=== PATIENT | female | born 1975 | race Caucasian/White ===

== ENCOUNTER 2018-11-16 08:00 | Outpatient (CLI) | payer MEDICAID ==
[2018-11-16 12:21] LABS: BASOPHILS % (AUTO) 0.6 %; EOSINOPHILS # (AUTO) 0.1 10^3/uL (0.0-0.7); EOSINOPHILS % (AUTO) 1.9 %; HGB - HEMOGLOBIN 12.7 g/dL (12.0-16.0); LYMPHOCYTES # (AUTO) 2.5 10^3/uL (1.5-3.5); LYMPHOCYTES % (AUTO) 47.6 %; MEAN CORPUSCULAR HEMOGLOBIN 28.9 pg (27.0-31.0); MEAN CORPUSCULAR HGB CONC 31.1 g/dL (32.0-36.0); MEAN CORPUSCULAR VOLUME 92.7 fL (81.0-99.0); MEAN PLATELET VOLUME 11.9 fL (7.9-10.8); MONOCYTES # (AUTO) 0.4 10^3/uL (0.0-1.0); MONOCYTES % (AUTO) 6.9 %; NEUTROPHILS # (AUTO) 2.2 10^3/uL (1.5-6.6); NEUTROPHILS % (AUTO) 42.6 %; PLT - PLATELET COUNT 213 10^3/uL (130-450); WHITE BLOOD COUNT 5.3 x10^3/uL (4.8-10.8)
[2018-11-16 12:58] LABS: ALBUMIN 3.8 g/dL (3.2-5.5); ALBUMIN/GLOBULIN RATIO 1.2 (1.0-2.2); ALKALINE PHOSPHATASE 70 IU/L (42-121); ALT ALANINE AMINOTRANSFERASE 21 IU/L (10-60); AST ASPARTATE AMINOTRANSFERASE 24 IU/L (10-42); BILIRUBIN,TOTAL 0.4 mg/dL (0.2-1.0); BUN - BLOOD UREA NITROGEN 13 mg/dL (6-20); CARBON DIOXIDE - CO2 27 mmol/L (21-32); CHLORIDE 106 mmol/L (101-111); CHOL/HDL RATIO 2.5 (<4.4); CHOLESTEROL 206 mg/dL; CREATININE 0.8 mg/dL (0.4-1.0); GFR - MDRD 79 (>89); GLUCOSE 86 mg/dL (70-100); HDL CHOLESTEROL 82 mg/dL; LDL CHOLESTEROL,CALCULATED 95 mg/dL; LDL/HDL RATIO 1.2 (<4.4); SODIUM 140 mmol/L (135-145); VLDL CHOLESTEROL 29 mg/dL
[2018-11-16 13:25] LABS: HB2 TOTAL 13.4 g/dL; HEMOGLOBIN A1C 0.47 g/dL; HEMOGLOBIN A1C % 5.4 % (4.6-6.2)
== END 2018-11-16 23:59 | disposition home or self-care (01) ==
LOC: LAB.N 08:00
PROVIDERS: ATTEND Physician Assistant Medical
DX: E55.9 Vitamin D deficiency, unspecified (principal); E16.2 Hypoglycemia, unspecified; Z87.39 Personal history of other diseases of the musculoskeletal system and connective tissue; F31.9 Bipolar disorder, unspecified; F43.10 Post-traumatic stress disorder, unspecified
CPT/HCPCS: 36415; 80053; 80061; 82306; 83036; 83721; 84443; 85025

== ENCOUNTER 2018-12-24 14:58 | Outpatient (CLI) | payer MEDICAID ==
--- NOTE | 2019-01-01 11:32 | Mammography Report ---
Reason: SCREENING MAMMO Procedure Date: 12/24/2018 Accession Number: [id number] / [id number] Procedure: MGN - Screening Mammo Dig Bilat CPT Code: FULL RESULT: EXAM: Screening Mammo Dig Bilat DATE: 12/24/2018 3:20 PM CLINICAL HISTORY: Routine screening. No reported personal or family history of breast cancer. 40 pound weight loss. TECHNIQUE: (B) - Bilateral CC and MLO views were obtained. COMPARISON: None available. If comparison images are obtained, an addendum to this report will be issued. PARENCHYMAL PATTERN: (A) - The breasts demonstrate scattered fibroglandular densities bilaterally. FINDINGS: Right breast: There are no suspicious masses, calcifications or areas of distortion. Left breast: There is a 9 mm one view asymmetry in the posterior lateral left CC view only 12 cm from the nipple. No suspicious calcifications or areas of distortion. IMPRESSION: Incomplete examination. BI-RADS category 0. 9 mm one view asymmetry posterior lateral left CC view only. RECOMMENDATION: (ADDMAM) - Recommend additional mammographic views. Possible ultrasound as indicated. BI-RADS CATEGORY: (0) - Incomplete Examination - need additional evaluation. STANDARD QUALIFYING STATEMENTS: 1. This examination was not reviewed with the aid of Computer-Aided Detection (CAD). 2. A negative or benign imaging report should not preclude biopsy if clinically suspicious findings are present. 3. Dense breasts may obscure an underlying neoplasm. 4. This examination was reviewed without the aid of 3D breast imaging (tomosynthesis).
== END 2018-12-24 14:59 | disposition home or self-care (01) ==
LOC: DI.N 14:58
PROVIDERS: ATTEND Physician Assistant Medical
DX: Z12.31 Encounter for screening mammogram for malignant neoplasm of breast (principal)
CPT/HCPCS: 77067

== ENCOUNTER 2019-01-16 07:58 | Outpatient (CLI) | payer MEDICAID ==
--- NOTE | 2019-01-16 11:12 | Mammography Report ---
Reason: ABN MAMMO - LT SPEC VIEWS Procedure Date: 01/16/2019 Accession Number: [id number] / [id number] Procedure: ESTELLA - Diag Special Views Dig LT CPT Code: FULL RESULT: EXAM: Diag Special Views Dig LT, Breast Unilateral Limited DATE: 01/16/2019 8:49 AM CLINICAL HISTORY: Follow-up abnormal mammogram of 12/24/2018 COMPARISON: 12/24/2018 and 01/01/2015 TECHNIQUE: (L) - Left. Additional views were obtained. PARENCHYMAL PATTERN: (A) - The breasts demonstrate scattered fibroglandular densities bilaterally. FINDINGS: LEFT MAMMOGRAM: The density previously described in the lateral left breast on the CC projection persists on additional views. In addition on tomographic images nodular densities are seen in the retroareolar left breast 3:00 position. LEFT BREAST ULTRASOUND: TECHNIQUE: Real-time scanning by the perioperative assistant with saved static images reviewed. FINDINGS: Corresponding to the nodular densities 3:00 position 2 cm from the nipple are several dilated ducts. In the 2:00 position 11 cm from the nipple no ultrasound correlate for the mammographic finding is identified. IMPRESSION: Probably Benign. BI-RADS category 3. Left breast RECOMMENDATION: (6MOS) - Recommend 6 month follow-up exam. Left breast mammogram. BI-RADS CATEGORY: (3) - Probably Benign. STANDARD QUALIFYING STATEMENTS: 1. This examination was not reviewed with the aid of Computer-Aided Detection (CAD). 2. A negative or benign imaging report should not preclude biopsy if clinically suspicious findings are present. 3. Dense breasts may obscure an underlying neoplasm. 4. This examination was reviewed with the aid of 3D breast imaging (tomosynthesis).
== END 2019-01-16 07:59 | disposition home or self-care (01) ==
LOC: DI 07:58
PROVIDERS: ATTEND Physician Assistant Medical
DX: R92.8 Other abnormal and inconclusive findings on diagnostic imaging of breast (principal)
CPT/HCPCS: 76642

== ENCOUNTER 2019-01-22 12:31 | Emergency (ER) | payer MEDICAID ==
[2019-01-22] MEDS ORDERED: CHERRY SYRUP 10 ML UDC PO ONE (14:33)
[2019-01-22] MEDS ORDERED: DEXAMETHASONE 10 MG/ML VIAL PO STA (14:33)
--- NOTE | 2019-01-22 14:35 | ED Physician Documentation ---
PD HPI HEENT - Stated complaint Stated Complaint: CONGESTION/EAR PX - Chief complaint Chief Complaint: Resp - History obtained from History obtained from: Patient - History of Present Illness Timing - onset: How many days ago (3) Timing - duration: Days (3) Timing - details: Gradual onset, Still present Location: Left ear Improves: Medication Associated symptoms: Congestion, Rhinorrhea, Headache, Cough Similar symptoms before: Diagnosis (bronchitis) Recently seen: Not recently seen - Additional information Additional information: 43-year-old female who is moved here from [place] and has a history of reactive airway disease and frequent sinus infections has developed a cough and congestion she is taking care of a [id number] granddaughter who is ill with otitis. The patient states that she has some pain in her left ear she has some rhinorrhea and cough with some thick phlegm. Review of Systems Constitutional: denies: Fever Eyes: denies: Decreased vision Ears: reports: Ear pain Nose: reports: Rhinorrhea / runny nose, Congestion Throat: denies: Sore throat Cardiac: denies: Chest pain / pressure, Palpitations Respiratory: reports: Cough, Wheezing. 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 Psych: Depression, Anxiety Musculoskeletal: Osteoarthritis - Past Surgical History Past Surgical History: Yes Ortho: ACL reconstruction /ORCHARD MANAGER: Hysterectomy HEENT: Tonsil/Adenoidectomy - Present Medications Home Medications: Ambulatory Orders Medication Instructions Recorded Confirmed Albuterol Sulf [Ventolin Hfa 1 - 2 puffs INH Q4HR PRN #1 inhaler 01/22/19 Inhaler] Azithromycin [Zithromax] 250 mg PO DAILY #6 tablet 01/22/19 predniSONE [Prednisone] 40 mg PO DAILY #10 tablet 01/22/19 - Allergies Allergies/Adverse Reactions: Allergies Allergy/AdvReac Type Severity Reaction Status Date / Time No Known Drug Allergies Allergy Verified 01/22/19 12:45 - Social History Does the pt smoke?: No Smoking Status: Never smoker Does the pt drink ETOH?: Yes Does the pt have substance abuse?: No - Immunizations Immunizations are current?: No Immunizations: TDAP >10years/unknown - POLST Patient has POLST: No PD ED PE NORMAL - Vitals Vital signs reviewed: Yes (normal ) - General General: Alert and oriented X 3, No acute distress, Well developed/nourished - HEENT HEENT: Atraumatic, PERRL, EOMI. No: Other (minimal inflamation to the left TM in the attic with absent uvula and inflamation to the tonsilar pillars worse on the left) - Neck Neck: Supple, no meningeal sign, No bony TTP - Cardiac Cardiac: RRR, No murmur - Respiratory Respiratory: No respiratory distress, Other (fine scattered wheezes bilat) - Abdomen Abdomen: Soft, Non tender - Back Back: No CVA TTP, No spinal TTP - Derm Derm: Normal color, Warm and dry, No rash - Extremities Extremities: No deformity, No edema - Neuro Neuro: Alert and oriented X 3, director regulatory agency 2-12 intact, No motor deficit, No sensory deficit, Normal speech Eye Opening: Spontaneous Motor: Obeys Commands Verbal: Oriented GCS Score: 15 - Psych Psych: Normal mood, Normal affect Results - Vitals Vitals: Vital Signs - 24 hr 01/22/19 12:42 Temperature 36.5 C Heart Rate 88 Respiratory 18 Rate Blood Pressure 103/77 O2 Saturation 98 Oxygen O2 Source Room air PD MEDICAL DECISION MAKING - ED course Complexity details: considered differential, d/w patient ED course: 43-year-old female with a history of COPD has bronchitis with reactive airway disease and she has a mild left otitis. She is administered dexamethasone 10 mg orally here we will place her on some prednisone some azithromycin and an inhaler. Departure - Departure Disposition: 01 Home, Self Care Clinical Impression: Bronchitis Condition: Stable Instructions: ED Bronchitis Asthmatic Follow-Up: Jerrod Juan PA-C [Primary Care Provider] - Prescriptions: Albuterol Sulf [Ventolin Hfa Inhaler] 1 - 2 puffs INH Q4HR PRN #1 inhaler PRN Reason: Shortness Of Air/Wheezing Azithromycin [Zithromax] 250 mg PO DAILY #6 tablet predniSONE [Prednisone] 40 mg PO DAILY #10 tablet
[2019-01-22 14:49] VITALS: BP 105/78
== END 2019-01-22 14:47 | disposition home or self-care (01) ==
LOC: ED 12:31
DX: J44.0 Chronic obstructive pulmonary disease with (acute) lower respiratory infection (principal); J20.9 Acute bronchitis, unspecified; H66.92 Otitis media, unspecified, left ear
CPT/HCPCS: 99282; 99284; A9270

== ENCOUNTER 2019-04-29 09:43 | Outpatient (CLI) | payer MEDICAID ==
--- NOTE | 2019-04-29 15:27 | XRAY Report ---
Reason: KNEE JOINT PAIN Procedure Date: 04/29/2019 Accession Number: [id number] / [id number] Procedure: XR - Knee 3 View BILAT CPT Code: Final Report FULL RESULT: EXAMS: 1. Right Knee Radiography 2. Left Knee Radiography EXAM DATE:04/29/2019 10:08 AM. CLINICAL HISTORY:Knee joint pain. History of surgeries in both knees with PCL surgery in left knee and lateral meniscus repair right knee. COMPARISON: None. TECHNIQUE: 3 views each. FINDINGS: Right Knee: Bones: No acute fracture or bony lesion. Mild degenerative spurring. Lucency in the proximal right tibial shaft/plateau may be postsurgical. Joints: Mild narrowing of the medial, lateral and patellofemoral compartment. No knee effusion. No dislocation. Soft Tissues: Normal. No soft tissue swelling. Left Knee: Bones: No acute fracture or bony lesion. Minimal degenerative spurring. Joints: Slight narrowing of the medial compartment. No knee effusion. No dislocation. Soft Tissues: Normal. No soft tissue swelling. IMPRESSION: 1. Mild multicompartmental degenerative changes of the right knee. 2. Mild degenerative change of the medial compartment of the left knee. RADIA
== END 2019-04-29 09:44 | disposition home or self-care (01) ==
LOC: DI 09:43
PROVIDERS: ATTEND Physician Assistant Medical
DX: M17.0 Bilateral primary osteoarthritis of knee (principal)

== ENCOUNTER 2019-11-26 10:09 | Outpatient (CLI) | payer MEDICAID ==
--- NOTE | 2019-11-27 12:08 | Mammography Report ---
UNILATERAL LEFT DIGITAL DIAGNOSTIC MAMMOGRAM 3D/2D: 11/26/2019 CLINICAL: Patient returns for a 6 month follow up of the left breast. Comparison is made to exams dated: 01/16/2019 ultrasound, 01/16/2019 mammogram, and 12/24/2018 mammog [facility]. The tissue of left breast is heterogeneously dense. This may low er the sensitivity of mammography. There is a 5 mm focal asymmetry in the left breast at 2 o'clock posterior depth. This is not signifi cantly changed. No other significant masses or calcifications are seen in the breast. IMPRESSION: PROBABLY BENIGN The 5 mm focal asymmetry in the left breast has a differential diagnosis of a lymph node and is proba bill benign. A follow-up left mammogram in 6 months is recommended to demonstrate stability. This exam was interpreted at Station ID: [id number]. NOTE: For mammograms, a report in lay terms will be sent to the patient. Approximately 15% of breast malignancies will not be visualized mammographically. In the management of a palpable breast mass, a negative mammogram must not discourage biopsy of a clinically suspicious lesion. SUMMARY: Cumulative months of stability: 12. Recommend follow-up left breast diagnostic mammogram in 6 months to demonstrate continued stability. The patient is currently due for right breast screening mammogram . Electronically Signed By: Dung minor/harsha:11/26/2019 12:52:45 ACR BI-RADS Category 3: Probably benign 3343F PARENCHYMAL PATTERN: (D) - The breast(s) demonstrate(s) heterogeneously dense fibroglandular nazario harden. BI-RADS CATEGORY: (3) - 3 Mammogram [id number] 6 month follow-up LATERALITY: (L)
== END 2019-11-26 10:10 | disposition home or self-care (01) ==
LOC: DI 10:09
PROVIDERS: ATTEND Family Medicine
DX: R92.8 Other abnormal and inconclusive findings on diagnostic imaging of breast (principal)

== ENCOUNTER 2020-01-20 10:31 | Outpatient (CLI) | payer MEDICAID ==
--- NOTE | 2020-01-20 11:14 | XRAY Report ---
PROCEDURE: Foot 3 View BILAT INDICATIONS: R AND L FOOT PAIN TECHNIQUE: 3 views of the left foot and 3 views of the right foot were acquired. COMPARISON: None. FINDINGS: Bones: No fractures or dislocations. No suspicious bony lesions. Mild osteoarthritic changes in th e interphalangeal joints bilaterally. Soft tissues: No tibiotalar joint effusion. Achilles tendon appears normal. IMPRESSION: Mild osteoarthritis bilaterally. Reviewed by: Raman Hutchins MD on 01/20/2020 11:13 AM PDT Approved by: Raman Hutchins MD on 01/20/2020 11:13 AM PDT Station ID: [id number]
== END 2020-01-20 23:59 | disposition home or self-care (01) ==
LOC: DI.WCP 10:31
PROVIDERS: ATTEND Orthopaedic Surgery
DX: M19.072 Primary osteoarthritis, left ankle and foot (principal); M19.071 Primary osteoarthritis, right ankle and foot

== ENCOUNTER 2020-01-27 09:49 | Outpatient (CLI) | payer MEDICAID ==
--- NOTE | 2020-01-27 16:53 | DEXA Report ---
PROCEDURE: Dexa Spine and/or Hip INDICATIONS: MENOPAUSAL, OSTEOPENIA TECHNIQUE: Dual energy x-ray absorptiometry (DXA) was performed on a [employer] System. Regions measur ed are the AP Spine, femoral neck, and if needed forearm. COMPARISON: None. FINDINGS: Lumbar Spine: Bone Mineral Density 1.084 g/cm/cm,T score -0.8, normal Left Hip: Bone Mineral Density 0.931 g/cm/cm,T score -0.6, normal Left Femoral Neck: Bone Mineral Density 0.803 g/cm/cm, T score -1.7, mild to moderate osteopenia (T score greater or equal to -1.0: NORMAL) (T score from -1.1 to -2.4: OSTEOPENIA) (T score less than or equal to -2.5 to: OSTEOPOROSIS) Impression: Mild/moderate osteopenia within the left femoral neck. Patients with diagnosis of osteoporosis or osteopenia should have regular bone mineral density assess ment. For those eligible for Medicare, routine testing is allowed once every 2 years. Testing frequ ency can be increased for patients who have rapidly progressing disease or for those who are receivin g medical therapy to restore bone mass. Reviewed by: Marylin Hart MD on 01/27/2020 4:52 PM PST Approved by: Marylin Hart MD on 01/27/2020 4:52 PM PST Station ID: [id number]
== END 2020-01-27 09:50 | disposition home or self-care (01) ==
LOC: DI 09:49
PROVIDERS: ATTEND Obstetrics & Gynecology
DX: M85.88 Other specified disorders of bone density and structure, other site (principal)
CPT/HCPCS: 77080

== ENCOUNTER 2020-06-15 09:02 | Outpatient (CLI) | payer MEDICAID ==
--- NOTE | 2020-06-16 09:27 | Mammography Report ---
BILATERAL DIGITAL DIAGNOSTIC MAMMOGRAM 3D/2D: 06/15/2020 CLINICAL: 6 month follow-up of focal asymmetry. Comparison is made to exams dated: 11/26/2019 mammogram, 01/16/2019 mammogram, 12/24/2018 mammogram - [facility], and 01/01/2015 mammogram - [facility]. The tissue of both breasts is heterogeneously dense. This may lower the sensitivity of mammography. The 5 mm focal asymmetry in the left breast at 2 o'clock posterior depth is no longer seen and has a differential diagnosis of a lymph node. There also is an asymmetry with an indistinct margin in the left breast at 6 o'clock middle depth. T his is not significantly changed and additional compression views show normal breast tissue with no u nderlying mass. No other significant masses, calcifications, or other findings are seen in either breast. IMPRESSION: BENIGN The asymmetry in the left breast at 6 o'clock middle depth is consistent with fibroglandular tissue a nd is benign. There is no mammographic evidence of malignancy. Return to annual mammogram screening schedule is rec ommended. This exam was interpreted at Station ID: [id number]. NOTE: For mammograms, a report in lay terms will be sent to the patient. Approximately 15% of breast malignancies will not be visualized mammographically. In the management of a palpable breast mass, a negative mammogram must not discourage biopsy of a clinically suspicious lesion. Electronically Signed By: Senthil Lewis acr/:06/15/2020 11:22:59 ACR BI-RADS Category 2: Benign Finding(s) 3342F PARENCHYMAL PATTERN: (D) - The breast(s) demonstrate(s) heterogeneously dense fibroglandular nazario harden. BI-RADS CATEGORY: (2) - 2 RECOMMENDATION: (ANNUAL) - Recommend routine annual screening mammography. [id number] return to screening LATERALITY: (B)
== END 2020-06-15 09:03 | disposition home or self-care (01) ==
LOC: DI 09:02
PROVIDERS: ATTEND Nurse Practitioner Family
DX: R92.8 Other abnormal and inconclusive findings on diagnostic imaging of breast (principal); N64.89 Other specified disorders of breast